=== PATIENT | female | born 1955 | race African-American/Black ===

== ENCOUNTER 2017-08-27 10:32 | Emergency (ER) | payer OTHER ==
[~2017-08-27] VITALS: Ht 165.1 cm; Wt 146.1 kg
--- NOTE | ~2017-08-27 | EKG ---
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 : 1955 Requested By: Lynn Meyer Order Number: [id number] MD: Adriano Edwards Measurements Intervals [place] Rate: 93 P: 42 WV: 174 QRS: 12 QRSD: 86 T: 30 QT: 357 QTc: 445 Interpretive Statements Sinus rhythm Low voltage, precordial leads Minimal ST elevation, inferior leads No previous ECG available for comparison Electronically Signed On 08-28-2017 9:20:28 [employer]BILL CLERK by Adriano Edwards [email or web address] <ELECTRONICALLY SIGNED> By: Adriano Edwards MD, [facility] 08/28/17 0920 1049 1049 Adriano Edwards MD, FACC /EPI
[2017-08-27] MEDS ORDERED: LIPITOR 20 MG T20 M1 PO (10:44)
[2017-08-27] MEDS ORDERED: ASPIR 8181 MG PO (10:44)
[2017-08-27] MEDS ORDERED: NEPHRO-VITE RX1 TA1 PO (10:45)
[2017-08-27] MEDS ORDERED: NOVOLOG100 UNIT/1 SUBQ (10:46)
[2017-08-27] MEDS ORDERED: ZOFRAN ODT4 M1 PO (10:46)
[2017-08-27] MEDS ORDERED: RENVELA800 MG PO (10:46)
[2017-08-27] MEDS ORDERED: COUMADIN 1MG TAB1 M1 PO (10:47)
[2017-08-27 12:16] LABS: ANION GAP 12 mmol/L (7-16); BUN 33 mg/dL (7-18); CALCIUM 9.4 mg/dL (8.5-10.1); CHLORIDE 98 mmol/L (98-107); CO2 26 mmol/L (21-32); CREATININE 6.7 mg/dL (0.6-1.0); GLUCOSE 177 mg/dL (74-106); POTASSIUM 4.1 mmol/L (3.5-5.1); SODIUM 136 mmol/L (136-145)
[2017-08-27 12:19] LABS: ALBUMIN 2.9 g/dL (3.4-5.0); ALKALINE PHOSPHATASE 131 U/L (46-116); DIRECT BILIRUBIN < 0.1 mg/dL (<0.1-0.3); SGOT 38 U/L (15-37); SGPT 14 U/L (30-65); TOTAL BILIRUBIN 0.5 mg/dL (<0.1-1.0); TOTAL PROTEIN 7.2 g/dL (6.4-8.2)
[2017-08-27 12:24] LABS: TROPONIN-I < 0.04 ng/mL (<0.06)
[2017-08-27 12:30] LABS: BASOPHILS 0.9 % (0.0-2.0); EOSINOPHILS 4.9 % (0.0-3.0); HEMOGLOBIN 11.5 gm/dL (12.0-15.0); LYMPHOCYTES 12.5 % (24.0-44.0); MCH 29.5 pg (26.0-34.0); MCHC 32.7 g/dL (28.0-37.0); MCV 90.1 fL (80.0-100.0); MONOCYTES 8.4 % (1.0-8.0); PLATELET COUNT 201 thou/uL (150-400); POLYS 73.3 % (36.0-66.0); RBC 3.89 mil/uL (4.20-5.00); RDW 16.1 % (10.5-14.5); WBC 8.2 thou/uL (4.0-11.0)
[2017-08-27 12:31] LABS: MANUAL DIFF NO
[2017-08-27 12:41] LABS: APTT 25.6 Seconds (24.5-32.8)
[2017-08-27 14:37] VITALS: BP 111/52
== END 2017-08-27 14:38 | disposition home or self-care (01) ==
LOC: ER 10:32
PROVIDERS: Emergency Medicine
DX: R07.9 Chest pain, unspecified (principal); N18.6 End stage renal disease; E11.9 Type 2 diabetes mellitus without complications; E21.3 Hyperparathyroidism, unspecified; E78.5 Hyperlipidemia, unspecified; D64.9 Anemia, unspecified; E66.9 Obesity, unspecified; I10 Essential (primary) hypertension; F32.9 Major depressive disorder, single episode, unspecified; K21.9 Gastro-esophageal reflux disease without esophagitis; Z99.2 Dependence on renal dialysis; Z90.710 Acquired absence of both cervix and uterus; Z88.1 Allergy status to other antibiotic agents; Z88.6 Allergy status to analgesic agent